=== PATIENT | male | born 1995 | race African-American/Black ===

== ENCOUNTER 2022-04-14 00:48 | Emergency (ER) | payer MEDICAID ==
[~2022-04-14] VITALS: Ht 185.4 cm; Wt 65.9 kg
[~2022-04-14 00:48] MED LIST: MEDR4 PO
[2022-04-14 00:57] VITALS: BP 174/99
[2022-04-14] MEDS ORDERED: LIDOCAINE 5% TRANSDERMAL PATCH TD ONE (02:15)
[2022-04-14] MEDS ORDERED: KETOROLAC TROMETHAMINE 30 MG/ML VIAL IM ONE (02:15)
[2022-04-14] MEDS ORDERED: SODIUM CHLORIDE 0.9% 1,000 ML IV ONE (03:15)
[2022-04-14] MEDS ORDERED: MORPHINE SULFATE 4 MG/ML SYRINGE IVP ONE ×2 (03:15→04:15)
== END 2022-04-14 05:49 | disposition home or self-care (01) ==
LOC: EMS 00:49
DX: D57.00 Hb-SS disease with crisis, unspecified (principal); F12.90 Cannabis use, unspecified, uncomplicated
CPT/HCPCS: 36415; 96361; 96372; 96374; 96376; 99284; J1885; J2270

== ENCOUNTER 2022-04-15 07:47 | Inpatient (IN) | payer MEDICAID ==
[~2022-04-15] VITALS: Ht 182.9 cm; Wt 59.7 kg
[2022-04-15] MEDS ORDERED: DEXTROSE 5%-0.45% SODIUM CHL 1,000 ML IV ONE (09:00)
[2022-04-15] MEDS ORDERED: MORPHINE SULFATE 4 MG/ML SYRINGE IVP ONE ×2 (09:00→11:30)
[2022-04-15 09:31] LABS: ANION GAP 8 mmol/L (8-16); CALCIUM, TOTAL 9.3 mg/dL (8.8-10.5); CARBON DIOXIDE 26 mmol/L (22-29); CHLORIDE 100 mmol/L (98-107); CREATININE 0.66 mg/dL (0.60-1.30); GLUCOSE,RANDOM 124 mg/dL (70-110); SODIUM SERUM 134 mmol/L (136-145); UREA NITROGEN, BLOOD 7 mg/dL (7-18)
[2022-04-15 09:34] LABS: GLOMERULAR FILTR. RATE CALC > 60 mL/min (>60)
[2022-04-15 09:36] LABS: HEMATOCRIT 29.5 % (41-53); HEMOGLOBIN 10.6 g/dL (13.5-17.5); MEAN CORPUSCULAR HEMOGLOBIN 27.2 pg (26.0-34.0); MEAN CORPUSCULAR HGB CONC 35.9 G/dL (31.0-37.0); MEAN CORPUSCULAR VOLUME 76 fL (80-100); PLATELET COUNT (AUTO) 231 K/uL (150-450); RED BLOOD CELL COUNT(AUTO) 3.88 MIL/uL (4.50-5.90); RED CELL DISTRIBUTION WIDTH 23.9 % (11.5-14.5); RETICULOCYTE % (AUTO) 7.1 % (0.5-2.3)
[2022-04-15 09:37] LABS: ALANINE AMINOTRANSFERASE 100 U/L (12-78); ALBUMIN 3.8 g/dL (3.4-5.0); ALKALINE PHOSPHATASE 79 U/L (46-116); ASPARTATE AMINOTRANSFERASE 58 U/L (15-37); BILIRUBIN,TOTAL 2.3 mg/dL (0.1-1.0); LACTATE DEHYDROGENASE 784 U/L (85-227); TOTAL PROTEIN, SERUM 8.8 g/dL (6.4-8.2)
[2022-04-15 10:02] LABS: PATHOLOGY REVIEW, DIFF YES
[2022-04-15 10:18] LABS: BAND NEUTROPHILS % (MANUAL) 0 % (0-5)
[2022-04-15 10:23] LABS: EOSINOPHILS % (MANUAL) 4 % (1-6); LYMPHOCYTES % (MANUAL) 38 % (22-44); MONOCYTES % (MANUAL) 18 % (2-9); MYELOCYTES % 1 % (0-0); PLATELET MORPHOLOGY COMMENT GIANT PLTS PRESENT; REACTIVE LYMPHOCYTES 2 % (0-0); SEGMENTED NEUTROPHILS % 37 % (40-70)
[2022-04-15] MEDS ORDERED: 0.9% SODIUM CHLORIDE 10 ML SYRINGE IVP PRN (11:15)
[2022-04-15] MEDS ORDERED: ONDANSETRON HCL 4 MG/2 ML VIAL IVP PRN ×2 (11:15→13:30)
[2022-04-15] MEDS ORDERED: ACETAMINOPHEN 325 MG TABLET PO PRN (11:15)
[2022-04-15] MEDS ORDERED: ASPIRIN 325 MG TABLET PO ONE (11:30)
[2022-04-15] MEDS ORDERED: CLOPIDOGREL BISULFATE 75 MG TABLET PO ONE (11:30)
[2022-04-15] MEDS ORDERED: SODIUM CHLORIDE 0.9% 1,000 ML IV ONE (11:30)
[2022-04-15 12:18] LABS: COVID AG,FIA SOURCE NASOPHARYNGEAL
[2022-04-15 12:57] VITALS: BP 189/104
[2022-04-15] MEDS: AmLODIPine BESYLATE 5 MG TABLET PO SCH ×2 (13:15→20:36)
[2022-04-15] MEDS ORDERED: OxyCODONE HCL/ACETAMINOPHEN 5-325 MG TABLET PO PRN (13:30)
[2022-04-15] MEDS ORDERED: MAGNESIUM HYDROXIDE SUSPENSION 30 ML UDCUP PO PRN (13:30)
[2022-04-15] MEDS: SODIUM CHLORIDE 0.9% 1,000 ML IV SCH ×2 (15:25→21:16)
[2022-04-15] MEDS: FOLIC ACID 1 MG TABLET PO SCH (15:25)
[2022-04-15 16:46] VITALS: BP 188/118
[2022-04-15] MEDS: CloNIDine HCL 0.1 MG TABLET PO PRN (18:14)
[2022-04-15 20:15] VITALS: BP 168/96
[2022-04-15] MEDS: DOCUSATE SODIUM 100 MG CAPSULE PO SCH (20:36)
[2022-04-16 00:16] VITALS: BP 169/93
[2022-04-16] MEDS: CloNIDine HCL 0.1 MG TABLET PO PRN ×4 (02:28→23:49)
[2022-04-16 06:03] VITALS: BP 171/103
[2022-04-16 06:16] LABS: ALANINE AMINOTRANSFERASE 68 U/L (12-78); ALBUMIN 3.5 g/dL (3.4-5.0); ALKALINE PHOSPHATASE 82 U/L (46-116); ANION GAP 8 mmol/L (8-16); ASPARTATE AMINOTRANSFERASE 49 U/L (15-37); BILIRUBIN,TOTAL 2.5 mg/dL (0.1-1.0); CALCIUM, TOTAL 9.3 mg/dL (8.8-10.5); CARBON DIOXIDE 26 mmol/L (22-29); CHLORIDE 96 mmol/L (98-107); CREATININE 0.61 mg/dL (0.60-1.30); GLUCOSE,RANDOM 110 mg/dL (70-110); POTASSIUM 3.8 mmol/L (3.5-5.1); SODIUM SERUM 130 mmol/L (136-145); TOTAL PROTEIN, SERUM 9.2 g/dL (6.4-8.2); UREA NITROGEN, BLOOD 9 mg/dL (7-18)
[2022-04-16 06:17] LABS: GLOMERULAR FILTR. RATE CALC > 60 mL/min (>60)
[2022-04-16 06:25] LABS: HEMATOCRIT 31.8 % (41-53); HEMOGLOBIN 11.2 g/dL (13.5-17.5); MEAN CORPUSCULAR HEMOGLOBIN 27.5 pg (26.0-34.0); MEAN CORPUSCULAR HGB CONC 35.3 G/dL (31.0-37.0); MEAN CORPUSCULAR VOLUME 78 fL (80-100); PLATELET COUNT (AUTO) 241 K/uL (150-450); RED BLOOD CELL COUNT(AUTO) 4.08 MIL/uL (4.50-5.90); RED CELL DISTRIBUTION WIDTH 23.8 % (11.5-14.5)
[2022-04-16] MEDS: SODIUM CHLORIDE 0.9% 1,000 ML IV SCH (06:56)
[2022-04-16 07:49] VITALS: BP 163/101
[2022-04-16] MEDS: MORPHINE SULFATE 2 MG/ML SYRINGE IVP PRN ×2 (08:26→15:50)
[2022-04-16] MEDS: AmLODIPine BESYLATE 5 MG TABLET PO SCH ×2 (08:28→20:43)
[2022-04-16] MEDS: DOCUSATE SODIUM 100 MG CAPSULE PO SCH ×2 (08:28→20:42)
[2022-04-16] MEDS: FOLIC ACID 1 MG TABLET PO SCH (08:28)
[2022-04-16] MEDS: ASPIRIN 81 MG CHEWABLE TABLET PO SCH (08:29)
[2022-04-16] MEDS: FAMOTIDINE 20 MG TABLET PO SCH (08:29)
[2022-04-16 08:40] LABS: BAND NEUTROPHILS % (MANUAL) 3 % (0-5); CORRECTED WHITE BLOOD COUNT 14.7 K/uL (4.5-11.0); LYMPHOCYTES % (MANUAL) 14 % (22-44); MONOCYTES % (MANUAL) 9 % (2-9); REACTIVE LYMPHOCYTES 1 % (0-0); SEGMENTED NEUTROPHILS % 73 % (40-70)
[2022-04-16 08:45] LABS: PLATELET MORPHOLOGY COMMENT GIANT PLTS PRESENT
[2022-04-16] MEDS ORDERED: CARVEDILOL 6.25 MG TABLET PO SCH (09:30)
[2022-04-16 15:26] VITALS: BP 180/106
[2022-04-16 19:35] VITALS: BP 172/116
[2022-04-16] MEDS: CARVEDILOL 12.5 MG TABLET PO SCH (20:43)
[2022-04-16] MEDS: ACETAMINOPHEN 325 MG TABLET PO PRN (20:47)
[2022-04-16 23:48] VITALS: BP 176/117
[2022-04-17] MEDS: MORPHINE SULFATE 2 MG/ML SYRINGE IVP PRN ×2 (02:10→08:23)
[2022-04-17] MEDS: SODIUM CHLORIDE 0.9% 1,000 ML IV SCH (02:12)
[2022-04-17 04:42] VITALS: BP 160/100
[2022-04-17] MEDS: ASPIRIN 81 MG CHEWABLE TABLET PO SCH (08:22)
[2022-04-17] MEDS: DOCUSATE SODIUM 100 MG CAPSULE PO SCH ×2 (08:22→20:33)
[2022-04-17] MEDS: CARVEDILOL 12.5 MG TABLET PO SCH (08:23)
[2022-04-17] MEDS: FOLIC ACID 1 MG TABLET PO SCH (08:23)
[2022-04-17] MEDS: FAMOTIDINE 20 MG TABLET PO SCH (08:23)
[2022-04-17] MEDS: AmLODIPine BESYLATE 5 MG TABLET PO SCH ×2 (08:23→20:33)
[2022-04-17 08:35] VITALS: BP 167/107
[2022-04-17 12:10] VITALS: BP 186/88
[2022-04-17] MEDS ORDERED: CloNIDine HCL 0.1 MG TABLET PO PRN (12:30)
[2022-04-17 16:43] VITALS: BP 149/88
[2022-04-17 20:33] VITALS: BP 164/98
[2022-04-17] MEDS: ACETAMINOPHEN 325 MG TABLET PO PRN (20:33)
[2022-04-17] MEDS: CARVEDILOL 25 MG TABLET PO SCH (21:10)
[2022-04-18] MEDS: MORPHINE SULFATE 2 MG/ML SYRINGE IVP PRN (02:52)
[2022-04-18 04:08] VITALS: BP 130/103
[2022-04-18 07:48] VITALS: BP 153/106
[2022-04-18] MEDS ORDERED: CARV25 PO (08:42)
[2022-04-18] MEDS ORDERED: AMLO-258 PO (08:42)
[2022-04-18] MEDS: FOLIC ACID 1 MG TABLET PO SCH (09:23)
[2022-04-18] MEDS: CARVEDILOL 25 MG TABLET PO SCH (09:25)
[2022-04-18] MEDS: FAMOTIDINE 20 MG TABLET PO SCH (09:25)
[2022-04-18] MEDS: AmLODIPine BESYLATE 5 MG TABLET PO SCH (09:25)
[2022-04-18] MEDS: DOCUSATE SODIUM 100 MG CAPSULE PO SCH (09:26)
[2022-04-18] MEDS: ASPIRIN 81 MG CHEWABLE TABLET PO SCH (09:26)
[2022-04-18 10:02] LABS: HEMATOCRIT 29.3 % (41-53); HEMOGLOBIN 10.1 g/dL (13.5-17.5); MEAN CORPUSCULAR HEMOGLOBIN 26.8 pg (26.0-34.0); MEAN CORPUSCULAR HGB CONC 34.4 G/dL (31.0-37.0); MEAN CORPUSCULAR VOLUME 78 fL (80-100); PLATELET COUNT (AUTO) 231 K/uL (150-450); RED BLOOD CELL COUNT(AUTO) 3.76 MIL/uL (4.50-5.90); RED CELL DISTRIBUTION WIDTH 22.7 % (11.5-14.5)
[2022-04-18 10:16] LABS: ALANINE AMINOTRANSFERASE 59 U/L (12-78); ALBUMIN 3.3 g/dL (3.4-5.0); ALKALINE PHOSPHATASE 85 U/L (46-116); ANION GAP 8 mmol/L (8-16); ASPARTATE AMINOTRANSFERASE 44 U/L (15-37); BILIRUBIN,TOTAL 2.5 mg/dL (0.1-1.0); CALCIUM, TOTAL 9.4 mg/dL (8.8-10.5); CARBON DIOXIDE 28 mmol/L (22-29); CHLORIDE 98 mmol/L (98-107); CREATININE 0.66 mg/dL (0.60-1.30); GLUCOSE,RANDOM 116 mg/dL (70-110); POTASSIUM 4.3 mmol/L (3.5-5.1); SODIUM SERUM 134 mmol/L (136-145); UREA NITROGEN, BLOOD 13 mg/dL (7-18)
[2022-04-18 10:17] LABS: GLOMERULAR FILTR. RATE CALC > 60 mL/min (>60)
[2022-04-18 10:50] LABS: BAND NEUTROPHILS % (MANUAL) 2 % (0-5); BASOPHILS % (MANUAL) 1 % (0-2); LYMPHOCYTES % (MANUAL) 17 % (22-44); MONOCYTES % (MANUAL) 10 % (2-9); SEGMENTED NEUTROPHILS % 70 % (40-70)
[2022-04-18 10:52] LABS: PLATELET MORPHOLOGY COMMENT GIANT PLTS PRESENT
[2022-04-18 11:04] VITALS: BP 151/110
[2022-04-18] MEDS ORDERED: CLON0.2T PO (13:31)
== END 2022-04-18 13:45 | disposition home or self-care (01) | DRG 662 ==
LOC: EMS 07:47 → 5N 11:23 → 5S 04-17 07:55
PROVIDERS: ADMIT Internal Medicine; ATTEND Internal Medicine
DX: D57.00 Hb-SS disease with crisis, unspecified (principal); I10 Essential (primary) hypertension; Z20.822 Contact with and (suspected) exposure to COVID-19; R77.8 Other specified abnormalities of plasma proteins; R74.01 Elevation of levels of liver transaminase levels; Z79.899 Other long term (current) drug therapy; Z79.82 Long term (current) use of aspirin
CPT/HCPCS: 71045; 73200; 80053; 83615; 84484; 85025; 85045; 87040; 87081; 93005; 93306; 99291; J2270; J7030; 36415-L1; 36415-TC